=== PATIENT | male | born 1985 | race Caucasian/White ===

== ENCOUNTER 2018-08-10 06:56 | Emergency (ER) | payer OTHER ==
[~2018-08-10] VITALS: Ht 175.3 cm; Wt 111.4 kg
[2018-08-10 06:57] VITALS: BP 135/71
[2018-08-10] MEDS ORDERED: DERMABOND TOPICAL SKIN ADHESIVE TOP ONE (07:30)
[2018-08-10] MEDS ORDERED: ADACEL/BOOSTRIX VACCINE (DIPHTH/PERTUSS/ACELL/TETANUS)0.5ML SYR (90715) IM ONE (07:30)
[2018-08-10] MEDS ORDERED: AUGM875T28 PO (08:14)
== END 2018-08-10 08:20 | disposition home or self-care (01) ==
LOC: M ED 06:56
DX: S61.200A Unspecified open wound of right index finger without damage to nail, initial encounter (principal); Y92.009 Unspecified place in unspecified non-institutional (private) residence as the place of occurrence of the external cause; W25.XXXA Contact with sharp glass, initial encounter